=== PATIENT | female | born 1995 | race Caucasian/White ===

== ENCOUNTER 2022-11-18 13:26 | Emergency (ER) | payer MEDICAID ==
[~2022-11-18] VITALS: Ht 154.9 cm; Wt 126.6 kg
[2022-11-18 13:48] VITALS: BP 152/80
--- NOTE | 2022-11-18 14:00 | NUR ---
27 Y/O FEMALE BIB SELF C/O SORE THROAT X3 DAYS, PT BELIEVES SHE HAS STREP THROAT, TAKING AMOXICILLINX2 DAYS, NOTED REDNESS IN THE BACK OF THE THROAT AND TONSILS +2, DENIES DIFFICULTY IN SWALLOWING, DENIES SOB, COUGH, FEVERS NKA PMH: DENIES
[2022-11-18] MEDS ORDERED: PENI500T20 PO (14:29)
[2022-11-18] MEDS ORDERED: LIDO15SO PO (14:29)
[2022-11-18] MEDS ORDERED: IBUP-2213 PO (14:29)
[2022-11-18] MEDS ORDERED: PRED20TA5 PO (14:29)
--- NOTE | 2022-11-18 14:48 | NUR ---
Patient discharged with v/s stable. Written and verbal after care instructions given and explained. Patient alert, oriented and verbalized understanding of instructions. Ambulatory with steady gait. All questions addressed prior to discharge. ID band removed. Patient advised to follow up with PMD. Rx of IBUPROFEN, LIDOCAINE, PENICILLIN V POTASSIUM, PREDNISONE given. Patient educated on indication of medication including possible reaction and side effects. Opportunity to ask questions provided and answered.
== END 2022-11-18 14:48 | disposition home or self-care (01) ==
LOC: MED 13:26
DX: J02.0 Streptococcal pharyngitis (principal); Z79.899 Other long term (current) drug therapy; Z79.1 Long term (current) use of non-steroidal anti-inflammatories (NSAID); Z79.2 Long term (current) use of antibiotics
CPT/HCPCS: 87081; 99283

== ENCOUNTER 2023-02-17 20:12 | Emergency (ER) | payer MEDICAID ==
[~2023-02-17] VITALS: Ht 154.9 cm; Wt 134.7 kg
[~2023-02-17 20:12] MED LIST: IBUP-2213 PO; LIDO15SO4 PO; PENI500T20 PO; PRED20TA5 PO
[2023-02-17 21:14] VITALS: BP 133/68
--- NOTE | 2023-02-17 21:20 | NUR ---
Pt triaged and placed in WR; Appears in no acute distress at this time.
--- NOTE | 2023-02-17 22:45 | NUR ---
PT TO CHAIR
--- NOTE | 2023-02-17 23:02 | NUR ---
Patient being evaluated by physician
[2023-02-17] MEDS ORDERED: NAPR-54 PO (23:17)
[2023-02-17] MEDS ORDERED: AMOX1TAB8 PO (23:17)
--- NOTE | 2023-02-17 23:20 | NUR ---
Patient discharged with v/s stable. Written and verbal after care instructions given and explained. Patient alert, oriented and verbalized understanding of instructions. Ambulatory with steady gait. All questions addressed prior to discharge. ID band removed. Patient advised to follow up with PMD. Rx of amoxicillin and naproxen given.Opportunity to ask questions provided and answered. Dr. Greer's orders reinforced
== END 2023-02-17 23:20 | disposition home or self-care (01) ==
LOC: MED 20:12
DX: J02.9 Acute pharyngitis, unspecified (principal); Z79.899 Other long term (current) drug therapy; Z79.1 Long term (current) use of non-steroidal anti-inflammatories (NSAID); Z79.2 Long term (current) use of antibiotics
CPT/HCPCS: 99283

== ENCOUNTER 2023-03-06 18:03 | Emergency (ER) | payer MEDICAID ==
[~2023-03-06] VITALS: Ht 154.9 cm; Wt 118.8 kg
[~2023-03-06 18:03] MED LIST changes: +AMOX1TAB8 PO; +NAPR-54 PO
[2023-03-06 18:13] VITALS: BP 103/50
[2023-03-06 19:01] LABS: APPEARANCE,URINE SL CLOUDY (CLEAR); BILIRUBIN,URINE 1+ (NEGATIVE); BLOOD, URINE 3+ (NEGATIVE); COLOR,URINE ORANGE (YELLOW); LEUKOCYTE ESTERASE ,URINE 2+ (NEGATIVE); NITRITE, URINE POSITIVE (NEGATIVE); UGLUCOSE NEGATIVE (NEGATIVE)
[2023-03-06 19:09] LABS: RBC,URINE TOO NUMEROUS TO COUN /HPF (0-5)
[2023-03-06 19:10] LABS: RED BLOOD CELL CASTS,URINE 0-10 /LPF (None Seen)
[2023-03-06] MEDS ORDERED: KETOROLAC 30 MG/ML VIAL IM ONE (19:15)
[2023-03-06] MEDS ORDERED: LIDOCAINE 5% 1 EA PATCH TP ONE (19:15)
[2023-03-06] MEDS ORDERED: LID5T TP (20:53)
[2023-03-06] MEDS ORDERED: IBUP-2213 PO (20:53)
[2023-03-06] MEDS ORDERED: CEPH-588 PO (20:53)
--- NOTE | 2023-03-06 21:15 | NUR ---
Patient discharged with v/s stable. Written and verbal after care instructions given and explained. Patient alert, oriented and verbalized understanding of instructions. Ambulatory with steady gait. All questions addressed prior to discharge. ID band removed. Patient advised to follow up with PMD. Rx of MOTRIN, KEFLEX, LIDODERM given. Patient educated on indication of medication including possible reaction and side effects. Opportunity to ask questions provided and answered.
[2023-03-06 21:18] VITALS: BP 103/50
== END 2023-03-06 21:15 | disposition home or self-care (01) ==
LOC: MED 18:03
DX: S39.012A Strain of muscle, fascia and tendon of lower back, initial encounter (principal); N39.0 Urinary tract infection, site not specified; F12.90 Cannabis use, unspecified, uncomplicated; Z79.899 Other long term (current) drug therapy; Z79.1 Long term (current) use of non-steroidal anti-inflammatories (NSAID); Z79.2 Long term (current) use of antibiotics; W08.XXXA Fall from other furniture, initial encounter; Y93.89 Activity, other specified; Y92.89 Other specified places as the place of occurrence of the external cause; Y99.8 Other external cause status
CPT/HCPCS: 81001; 81025; 87086; 96372; 99283; J1885

== ENCOUNTER 2023-05-22 14:12 | Emergency (ER) | payer MEDICAID ==
[~2023-05-22] VITALS: Ht 170.2 cm; Wt 90.7 kg
[~2023-05-22 14:12] MED LIST changes: +CEPH-588 PO; +LID5T TP
[2023-05-22 14:46] VITALS: BP 126/54; PULSE 68; RESP 16; TEMP 97.7; O2SAT 100
[2023-05-22 15:59] VITALS: BP 134/61; PULSE 71; RESP 14; TEMP 97.7; O2SAT 98
== END 2023-05-22 16:00 | disposition home or self-care (01) ==
LOC: MED 14:12
DX: M54.50 Low back pain, unspecified (principal); Z79.899 Other long term (current) drug therapy; W08.XXXA Fall from other furniture, initial encounter; Y93.89 Activity, other specified; Y92.89 Other specified places as the place of occurrence of the external cause; Y99.8 Other external cause status
CPT/HCPCS: 99281

== ENCOUNTER 2023-11-24 16:17 | Emergency (ER) | payer MEDICAID ==
[~2023-11-24] VITALS: Ht 154.9 cm; Wt 133.8 kg
[2023-11-24 17:00] VITALS: BP 117/78; PULSE 104; RESP 17; TEMP 99; O2SAT 97
[2023-11-24] MEDS ORDERED: FLONAS NS (18:17)
[2023-11-24] MEDS ORDERED: ACET-10509 PO (18:17)
[2023-11-24] MEDS ORDERED: IBUP-2230 PO (18:17)
[2023-11-24 19:50] LABS: FLU A ANTIGEN negative (NEGATIVE); FLU B ANTIGEN NEGATIVE (NEGATIVE)
== END 2023-11-24 18:28 | disposition home or self-care (01) ==
LOC: MED 16:17
DX: U07.1 COVID-19 (principal); J06.9 Acute upper respiratory infection, unspecified; Z79.899 Other long term (current) drug therapy
CPT/HCPCS: 99283